=== PATIENT | female | born 1985 | race Caucasian/White ===

== ENCOUNTER 2025-09-27 00:17 | Day surgery (SDC) | payer OTHER, SELFPAY ==
--- OUTSIDE RECORDS SUMMARY | 2024-12-04 08:00 | XMS_ITS ---
[facility] Organization [facility] Address [address] [place] [address] Care Team Providers Care Vault Worker Name Role Phone MEGAN THOMAS Primary Care Provider [phone] VISHAL OLMOS Unavailable [phone] REASON FOR VISIT 8-10 WEEKS Encounters Encounter Location Date Provider Diagnosis [facility] [address] [place] [address] 12/04/2024 VISHAL OLMOS Plan Of Treatment No Information Progress Notes * Ayo JAYChristianoB: 983 (40 yo F)Acc No.[id number]:12/04/2024 Progress Notes Patient: Madison Leigh Provider: EBONY WOODARD :1985 A ge:39 Y S ex:Female Date:12/04/2024 Address:[facility] [address] [id number] Pcp:MEGAN THOMAS Subjective: * Chief Complaints: * 8 -10 WEEKS * Electronic signature of EBONY GOMEZ on 09/27/2025 at 12:20 AM CDT Sign off status: Pending * Provider: EBONY WOODARD Date: 0 12/04/2024 Generated for Kaylyn sosa/[place]/eTransmitting on: 1 12:20 AM CDT
--- NOTE | 2025-09-18 11:13 | SUR.PREOP ---
[facility] has started construction of its new state of the art ER which will open Spring 2026. With this, we anticipate parking may be a challenge for some our surgical patients and families. Parking spaces are limited but are available for all Surgical, obstetrics, and ER patients sharing this lot. If you arrive and find you are having a hard time finding a parking space, please note that we understand the challenges, please drive around the hospital and park near Hospital Entrance 1. When you enter this entrance, you can ask a volunteer to direct or take you back to the surgical waiting area to check in. We appreciate everyone?s understanding of these expected challenges while we build for your future. Report to the Outpatient Waiting Room, entrance under the green pavilion located off [address], at time _6am___ on date _09/27/25__. Planned Procedure Time: __730am .? Time changes happen often and if your time is changed the preop area will call you the afternoon before. - You and your visitor will be asked to self-screen and do not enter if you have any COVID symptoms. Please call surgeon if you need to reschedule. - A mask is optional within the hospital at this time. Patients may have clear liquids (water, carbonated beverages, clear teas, apple juice) until 3 hours prior to surgery with a maximum of 20 ounces. - No food from midnight until time of surgery and no smoking, or chewing tobacco (or any form of nicotine). No chewing gum, candy or mints. Take only the following medications with a SIP of water on the morning of surgery: none DO NOT STOP ANY OF YOUR OTHER PRESCRIPTION MEDICATIONS PRIOR TO SURGERY EXCEPT THE FOLLOWING Hold all vitamins and supplements for 3 days per anesthesiologist. Medications to discontinue per physician n/a Date to take last dose___09/23/25 Please no make-up, nail canadian, hairspray, perfume, deodorant, or body powder the day of surgery.? No jewelry (including any body piercings) or valuables the day of surgery, leave them at home.? Please take a shower or bath the night before, or the morning of, surgery with an antibacterial soap.? Wear comfortable, loose fitting clothing.? - Jewelry must be removed prior to entering the operating room.? Rings and piercings that are not removed may be cut off. - The hospital will not accept responsibility for valuables.? - Please leave all valuables, including medications, at home the day of surgery. If you are going home after surgery, a licensed airport shuttle driver must drive you home.? - NO public transportation without another adult if you receive anesthesia. - We recommend that an adult stay with you for 24 hours following discharge. - We also recommend that you do not drive, make important decision, drink alcoholic beverages, or take any drugs that were not prescribed by your health care provider for at least 24 hours after your discharge time. For Pediatric surgeries, we recommend two adults accompany the child home. Follow any additional instructions given to you from your surgeon. Telephone instructions given to ___Sam and asked if any additional questions and then verbalized understanding. Patient advised to call surgeon office or pre surgery nurse liaison [phone] if any additional questions.
[2025-09-18 11:28] VITALS: BMI 23.6
[2025-09-27] VITALS (9 sets, daily range): BP systolic 94–126; BP diastolic 57–79; PULSE 80–99; RESP 12–17; TEMP 36.2–36.6; O2SAT 95–100; BMI 23.6
--- OUTSIDE RECORDS SUMMARY | 2025-09-27 00:20 | XMS_ITS | Clinical Summary ---
Author Organization [facility] Ryan Ritchie Address [address] [place] [address] Care Team Providers Care Picture Copyist Name Role Phone Carly Galindo MD Primary Care Provider [phone] Allergies No known active allergies Medications loratadine-pseud oephedrine (CLARITIN-D 12-hour) 5-120 mg tablet extended release 12 hr 1 tablet every 12 (twelve) hours. Active TRINESSA, 28, 0.18/0.215/0.25 mg-35 mcg (28) per tablet TAKE 1 TABLET BY MOUTH DAILY 28 tablet 10/17/2018 Active Active Problems Problem Noted Date Diagnosed Date BMI 22.0-22.9, adult 04/19/2018 Assessment & Plan (04/19/2018 1:07 PM CDT): BMI Follow-up includes: nutrition counseling, exercise counseling and education provided. Allergic rhinitis Immunizations Immunization Administration Dates Next Due Influenza, Unspecified 04/19/2017(Deferred: Caroline ent Refused) Medical History Medical History Date Comments Allergic rhinitis Family History Medical History Relation Name Comments Colon cancer Other great grand father Breast cancer Neg Hx Relation Name Status Comments Father Alive Mother Alive Other great grand father Alive Social History Tobacco Use Types Packs/Day Years Used Date Smoking Tobacco: Never Smokeless Tobacco: Never Alcohol Use Standard Drinks/Week Comments Yes 0 (1 standard drink = 0.6 oz pur e alcohol) social Personal Safety Answer Date Recorded Getting School Help Needed Not on file 02/11 Comments Unknown Sex and Gender Information Value Date Recorded Sex Assigned at Not on file Legal Sex Female 11:46 AM CDT Gender Identity Not on file Sexual Orientation Not on file Obstetrics History Para Term AB IAB SAB Ectopic Multiple Livin g Live Births 0 0 0 0 0 0 0 0 0 0 0 Last Filed Vital Signs Vital Sign Reading Time Taken Comments Blood Pressure 100/64 04/19/2018 12:49 PM CDT Pulse 88 04/19/2018 12:49 PM CDT Temperature - - Respiratory Rate - - Oxygen Saturation 99% 04/19/2018 12:49 PM CDT Inhaled Oxygen Concentration - - Weight 54.6 kg (120 lb 6.4 oz) 04/19/2018 12:49 PM CDT Height 157.5 cm (5' 2) 04/19/2018 12:49 PM CDT Body Mass Index 22.02 04/19/2018 12:49 PM CDT Plan of Treatment Not on file Insurance [facility] CHOICE PLUS [facility] HMO/PPO Address: [place] [address] Care Teams Picture Copyist Relationship Specialty Start Date End Date Carly Galindo MD [address] [place] [address] [place] [address] PCP - General Family Medicine 04/17/18
--- OUTSIDE RECORDS SUMMARY | 2025-09-27 00:20 | XMS_ITS | Encounter Summary ---
Author Organization [facility] Address [address] [place] [address] Care Team Providers Care Orthopaedic Technologist Name Role Phone Unavailable Primary Care Provider Unavailabl e Encounter Details Date Type Department Care Team (Late st Contact Info) Description 09/25/2025 External Device Data ST[place] ABSTRACTION Provider, Abstract NO ADDRESS ON FILE Social History Tobacco Use Types Packs/Day Years Used Date Smoking Tobacco: Never Alcohol Use Standard Drinks/Week Comments Yes 1 (1 standard drink = 0.6 oz pure alcohol) I may have a drink every couple months Comments No Sex and Gender Information Value Date Recorded Sex Assigned at Not on file 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
--- OUTSIDE RECORDS SUMMARY | 2025-09-27 00:20 | XMS_ITS | Patient Health Record ---
Author Organization [facility] Address [address] [place] [address] Care Team Providers Care Bench Worker Apprentice Name Role Phone MEGAN THOMAS Primary Care Provider VISHAL OLMOS Unavailable [phone] Allergies No Known Allergies Results Component Value Reference Range Flag Notes IRON, TIBC AND FERRITIN PANE L (5616) Reviewed date:10/21/2024 12:00:20 PM Interpretation: Performing Lab:[facility] [address]-[id number] [place], [id number] Ayala Mireles MD Notes/Report: FASTING:YES FASTING: YES IRON, TOTAL 90 40-190 mcg/dL N IRON BINDING CAPACITY 388 250-450 mcg/dL (calc) N % SATURATION 23 16-45 % (calc) N FERRITIN 23 16-232 ng/mL N CBC (H/H, RBC, INDICES, WBC, PLT) (REFL) (30659) Reviewed date:10/21/2024 12:00:20 PM Interpretation: Performing Lab:[facility] [address]yah-Dpfvut[address] Marcel [place], [id number] Ayala Mireles MD Notes/Report: FASTING:YES FASTING: YES WHITE BLOOD CELL COUNT 8.9 3.8-10.8 Thousand/uL N RED BLOOD CELL COUNT 4.81 3.80-5.10 Million/uL N HEMOGLOBIN 13.6 11.7-15.5 g/dL N HEMATOCRIT 43.1 35.0-45.0 % N MCV 89.6 80.0-100.0 fL N MCH 28.3 27.0-33.0 pg N MCHC 31.6 32.0-36.0 g/dL L For adults, a slight decrease in the calculated MCHC value (in the range of 30 to 32 g/dL) is most likely not clinically significant; however, it should be interpreted with caution in correlation with other red cell parameters and the patient's clinical condition. RDW 12.5 11.0-15.0 % N PLATELET COUNT 369 140-400 Thousand/uL N MPV 10.9 7.5-12.5 fL N TSH+FREE T4 (53090) Reviewed date:10/21/2024 12:00:20 PM Interpretation: Performing Lab:[facility], VR1-[id number] Marcel [facility], [id number] Ayala Mireles MD Notes/Report: FASTING:YES FASTING: YES TSH 1.19 N Reference Range > or = 20 Years 0.40-4.50 Ranges First trimester 0.26-2.66 Second trimester 0.55-2.73 Third trimester 0.43-2.91 T4, FREE 1.1 0.8-1.8 ng/dL N LIPID PANEL W/ TRIGLYCERIDES /HDL-C (67756) Reviewed date:10/21/2024 12:00:20 PM Interpretation: Performing Lab:[facility], [facility] [place] [address], [address]burgNczizfpcoOQ[address] Patrick Kaur PhD,[facility] Notes/Report: FASTING:YES FASTING: YES CHOLESTEROL, TOTAL 234 <200 mg/dL H HDL CHOLESTEROL 74 >49 mg/dL TRIGLYCERIDES 81 <150 mg/dL LDL CHOLESTEROL 142 <100 mg/dL (calc) H Desirable range <100 mg/dL for primary prevention; <70 mg/dL for patients with CHD or diabetic patients with >= 2 CHD risk factors. LDL-C is now calculated using the Sofia calculation, which is a validated novel method providing better accuracy than the Friedewald equation in the estimation of LDL-C. Tommie SS et al. RENA. 2013;310(19): 1208-7170 (http://education.VR1.Energate/faq/FAQ 164) CHOL/HDL C 3.2 <5.0 calc NON HDL CHOLESTEROL 160 <130 mg/dL (calc) H For patients with diabetes plus 1 major ASCVD risk factor, treating to a non-HDL-C goal of <100 mg/dL (LDL-C of <70 mg/dL) is considered a therapeutic option. TG/HDL C 1.1 <2.0 calc COMPREHENSIVE METABOLIC PANE L (REFL) (85299) Reviewed date:10/21/2024 12:00:20 PM Interpretation: Performing Lab:[facility] [address] [address] [address] Padmini Agosto [id number] [facility] Notes/Report: FASTING:YES FASTING: YES GLUCOSE 80 65-99 mg/dL N Fasting reference interval UREA NITROGEN (BUN) 14 7-25 mg/dL N CREATININE 0.62 0.50-0.99 mg/dL N EGFR 115 > OR = 60 mL/min/1.73m2 N BUN/CREATININE RATIO SEE NOTE: 6-22 (calc) Not Reported: BUN and Creatinine are within reference range. SODIUM 137 135-146 mmol/L N POTASSIUM 4.4 3.5-5.3 mmol/L N CHLORIDE 102 98-110 mmol/L N CARBON DIOXIDE 28 20-32 mmol/L N CALCIUM 10.0 8.6-10.2 mg/dL N PROTEIN, TOTAL 8.1 6.1-8.1 g/dL N ALBUMIN 4.6 3.6-5.1 g/dL N GLOBULIN 3.5 1.9-3.7 g/dL (calc) N ALBUMIN/GLOBULIN RATIO 1.3 1.0-2.5 (calc) N BILIRUBIN, TOTAL 0.4 0.2-1.2 mg/dL N ALKALINE PHOSPHATASE 90 31-125 U/L N AST 23 10-30 U/L N ALT 18 6-29 U/L N HEMOGLOBIN A1c (496) Reviewed date:10/21/2024 12:00:20 PM Interpretation: Performing Lab:[facility] [address] [address] Administration Padmini Agosto [id number] [facility] Notes/Report: FASTING:YES FASTING: YES HEMOGLOBIN A1c 5.5 <5.7 % of total Hgb N For the purpose of screening for the presence of diabetes: <5.7% Consistent with the absence of diabetes 5.7-6.4% Consistent with increased risk for diabetes (prediabetes) > or =6.5% Consistent with diabetes This assay result is consistent with a decreased risk of diabetes. Currently, no consensus exists regarding use of hemoglobin A1c for diagnosis of diabetes in children. According to [place] Diabetes Association (ADA) guidelines, hemoglobin A1c <7.0% represents optimal control in non- diabetic patients. Different metrics may apply to specific patient populations. Standards of Medical Care in Diabetes(ADA). Reason For Referral Reason I am referring this pleasant 39 year old female for evaluation of well woman's examination and evaluation of reports of irregular menstrual cycles with associated fatigue. As always, if you have any questions or concerns please feel free to contact me. Thank you, Vishal Olmos MSN, MANAGER PHOTO, SCHOOL ATHLETIC DIRECTOR-BC Diagnosis 1 Irregular menstruati on (N92.6) Referral Organization [facility] [employer] Referring Provider First Name VISHAL Referring Provider Last Name AMARILIS Referring Provider Speciality Primary Ca re - Family Medicine Referred Provider Debbie Devi Referred Provider Specialty Registered Nursing Professor and senior principal software engineer Referral Priority Routine Medications Medication SIG (Take, Route, Fr equency, Duration) Notes Start Date End Date Status Loratadine 10 MG Tablet 1 tablet Orally Once a day 10/04/2024 Active Social History Section Notes: Patient is a life long non-s moker and does not confirm to current or previous use of ETOH or illicit substances. 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 Patient is a life long non-s moker and does not confirm to current or previous use of ETOH or illicit substances. 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 Problems Problem Type SNOMED Code ICD Code Onset Dates Problem Status W/U Status Risk Notes Problem Mixed hyperlipidemia (753242694) Moderate mixed hyperlipidemia not requiring statin therapy (E78.2) Active confirmed Problem Anemia (156504156) Anemia (D64.9) Active confirmed Problem Seasonal allergic rhinitis (016427383) Seasonal allergic rhinitis (J30.2) Active confirmed Problem Irregular menstruation (56571430) Irregular menstruation (N92.6) Active confirmed Vital Signs Heart Rate 78 /min 10/04/2024 Temperature 97.8 degrees Fahrenheit 10/04/2024 Respiratory Rate 14 /min 10/04/2024 Oximetry 100 % 10/04/2024 Blood pressure diastolic 74 mm Hg 10/04/2024 Height 61 in 10/04/2024 Blood pressure systolic 124 mm Hg 10/04/2024 Weight 129.20 lbs 10/04/2024 BMI 24.41 kg/m2 10/04/2024 Encounters Encounter Location Date Provider Diagnosis [facility] [address] [place] [address] 10/04/2024 VISHAL OLMOS Annual physical exam Z00.00 ; Anemia D64.9 ; Seasonal allergic rhinitis J30.2 ; Encounter for screening for diabetes mellitus Z13.1 ; Encounter for screening for other suspected endocrine disorder Z13.29 ; Encounter for screening for lipoid disorders Z13.220 and Irregular menstruation N92.6 [facility] [address] [place] [address] 12/07/2024 VISHAL OLMOS Anemia D64.9 ; Seaso nal allergic rhinitis J30.2 ; Irregular menstruation N92.6 and Moderate mixed hyperlipidemia not requiring statin therapy E78.2 [facility] [address] [place] [address] 10/04/2024 VISHAL OLMOS [facility] [address] [place] [address] 10/21/2024 VISHAL OLMOS Assessments Encounter Date Diagnosis (ICD Code) Assessment Notes Treatment Notes Treatment Clinical Notes Section Notes 12/07/2024 Anemia (ICD-10 - D64.9) - stable with continued dietary/lifestyle modification and OTC supplementation - denies any adverse effects related to the same - MCHC decreased on CBC however remaining counts unremarkable, continue with surveillance of labs and clinical symptoms 12/07/2024 Seasonal allergic rhinitis (ICD-10 - J30.2) -advised on continued use of daily antihistamine and Flonase -educated on benefits of nasal washing, avoidance of known triggers and changing air filters frequently -patient advised to notify office of new or worsening symptoms or to seek medical care for the same 10/04/2024 Anemia (ICD-10 - D64.9) - patient reports hx of the same with associated irregular menstrual cycles - requisition given for labs including iron panel 10/04/2024 Annual physical exam (ICD-10 - Z00.00) -annual physcial examination was completed and documented in this visit 10/04/2024 Seasonal allergic rhinitis (ICD-10 - J30.2) -stable with continued conservative measures -advised on continued use of daily antihistamine and Flonase -educated on benefits of nasal washing, avoidance of known triggers and changing air filters frequently -patient advised to notify office of new or worsening symptoms or to seek medical care for the same 12/07/2024 Irregular menstruation (ICD-10 - N92.6) - static, patient mentions recent f/u with SCHOOL ATHLETIC DIRECTOR with no overt or concerning findings, symptoms r/t balta-menopause per patient account, will obtain records for review 10/04/2024 Encounter for screening for diabetes mellitus (ICD-10 - Z13.1) 12/07/2024 Moderate mixed hyperlipidemia not requiring statin therapy (ICD-10 - E78.2) - labs reviewed and discussed in length with patient, patient prefers to move forward with dietary and lifestyle modification and surveillance of routine labs - discussed benefits of supplementation with B3, red rice yeast, bergamot and importance of nutrient dense diet high in omega 3 fatty acids - advised on avoidance of high sugar or overly processed food and saturated fats - encouraged on increased activity and hydration with H2O - patient educated on potential risks r/t HLD and importance of continued surveillance 10/04/2024 Encounter for screening for other suspected endocrine disorder (ICD-10 - Z13.29) 10/04/2024 Encounter for screening for lipoid disorders (ICD-10 - Z13.220) 10/04/2024 Irregular menstruation (ICD-10 - N92.6) - patient endorses irregular menstrual cycles in presence of fatigue. hx of anemia reported - requisition given for labs including iron panel this visit - advised on f/u with SCHOOL ATHLETIC DIRECTOR patient in agreement for the same advised on f/u with Debbie Devi for the same 12/07/2024 Other - 20 minutes s pent obtaining HPI/ROS telephone encounter including review of medical records, preparation of note, medication reconciliation and continued coordination of care 10/04/2024 Other -50 minutes were spent on this patient encounter. time spent included reviewing external records, preparation of note, review of medications including OTC's, care coordination with staff, counselling the patient and discussing followup instructions. -advised on f/u in 8-10 weeks Plan Of Treatment No Information Insurance Providers Payer Name Payer Address Payer Phone Subscriber Number Group Number Insured Name Patient Relationship to Insured Coverage Start Date Coverage End Date [facility] - [address] [place] [address] [id number] Madison Jay Self - patient is the insured 4 Medical (General) History Medical History History ICD Code Anemia D64.9 Seasonal allergic rhinitis J30.2
--- OUTSIDE RECORDS SUMMARY | 2025-09-27 00:20 | XMS_ITS | Clinical Summary ---
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 Name Role Phone Unavailable Primary Care Provider Unavailabl e Allergies No known active allergies Medications No known medications Active Problems No known active problems Encounters Date Type Department Care Team Description 09/25/2025 External Device Data [facility] ABSTRACTION Provider, Abstract 09/17/2025 External Device Data [facility] Provider, Abstract 07/02/2025 External Device Data [facility] Provider, Abstract from Last 3 Months Immunizations Immunization Administration Dates Next Due (TDVAX)(7 YRS UP) TETANUS AN D DIPHTHERIA TOXOIDS, ADSORBED (2 LF OF TETANUS TOXOID AND 2 LF OF DIPHTHERIA TOXOID), 0.5ML (PF), IM 07/10/1998 Family History Medical History Relation Name Comments Ovarian Cancer Other MGaunt Relation Name Status Comments Other MGaunt Social History Tobacco Use Types Packs/Day Years Used Date Smoking Tobacco: Never Tobacco Cessation:Counseling Given: No Alcohol Use Standard Drinks/Week Comments Yes 1 (1 standard drink = 0.6 oz pure alcohol) I may have a drink every couple months Comments No Sex and Gender Information Value Date Recorded Sex Assigned at Not on file Legal Sex Female 2:22 AM INSPECTION MACHINE TENDER Gender Identity Not on file Sexual Orientation Not on file Last Filed Vital Signs Vital Sign Reading Time Taken Comments Blood Pressure 110/76 11/07/2024 9:49 AM INSPECTION MACHINE TENDER Pulse - - Temperature - - Respiratory Rate - - Oxygen Saturation - - Inhaled Oxygen Concentration - - Weight 59 kg (130 lb) 11/07/2024 9:49 AM INSPECTION MACHINE TENDER Height 157.5 cm (5' 2) 11/07/2024 9:49 AM INSPECTION MACHINE TENDER Body Mass Index 23.78 11/07/2024 9:49 AM INSPECTION MACHINE TENDER Plan of Treatment Health Maintenance Due Date Last Done Comments DTAP/TDAP/TD VACCINES (2 - Tdap) 07/11/1998 07/10/19 98 HEPATITIS B VACCINES (1 of 3 - 19+ 3-dose series) 2002 HPV VACCINES (1 - 3-dose SCDM series) 2010 INFLUENZA VACCINE (#1) 2025 BREAST CANCER SCREENING 01/28/2026 01/28/2025, 12/26 PAP SMEAR 11/07/2027 11/07/2024 CERVICAL CANCER SCREENING 11/07/2029 HPV/Cotest (21-29) 11/07/2029 11/07/2024 HPV/Cotest (30-65) 11/07/2029 11/07/2024 Procedures Procedure Name Priority Date/Time Associated Diagnosis Comments MAMMO DIAG UNI LEFT 3D ENRIQUE W OR WO CAD Routine 01/28/2025 1:10 PM INSPECTION MACHINE TENDER Abnormality of left breast on screening mammography CERV/VAG CYTO AGE BASED SCREEN PAP Routine 11/07/2024 10:03 AM INSPECTION MACHINE TENDER Well woman exam with routine gynecological exam from Last 3 Months or Most Recently Relevant to Health Maintenance Results * MAMMO 3D ENRIQUE DIAGNOSTIC UNI LT W OR WO CAD (01/28/2025 1:10 PM INSPECTION MACHINE TENDER) Anatomical Region Laterality Modality Breast Left Mammography 01/28/2025 1:11 PM INSPECTION MACHINE TENDER Impressions 01/28/2025 1:17 PM INSPECTION MACHINE TENDER IMPRESSION: No mammographic evidence of malignancy. RECOMMENDATIONS: Routine screening mammogram in one year. [facility] 1:17 PM INSPECTION MACHINE TENDER EXAM: LEFT BREAST FULL-FIELD DIGITAL DIAGNOSTIC MAMMOGRAM WITH CAD WITH 3D TOMOSYNTHESIS DATE: 01/28/2025 1:10 PM HISTORY: Recent abnormal screening mammogram. TECHNIQUE: Spot tomographic and lateral imaging left breast COMPARISON: Baseline exam from 12/26/2024 BREAST COMPOSITION: There are scattered areas of fibroglandular density. FINDINGS: With additional imaging the area resolves. No underlying mass or architectural distortion. OVERALL FINAL ASSESSMENT: BI-RADS CATEGORY 1 : Negative Debbie Devi DOCTOR PODIATRIC MEDICINE MAMMO ORDERABLES Final Result * CERV/VAG CYTO AGE BASED SCREEN PAP (11/07/2024 10:03 AM INSPECTION MACHINE TENDER) COMMENT (PAP): [facility] [place] Comment: This order for age-based cervical cancer and STI screening follows ACOG guidelines(PB 168, 140, YMD845). See individual assays for performing site location. CLINICAL INFORMATION [facility] Comment:SCREENING LAST MENSTRUAL PERIOD [facility] Comment:09/22/2024 PREV PAP: [facility] Comment:NONE GIVEN PREV BX: [facility] [place] Comment:NONE GIVEN SOURCE [facility] [place] Comment:Endocervix ADEQUACY: [facility] Comment: Satisfactory for evaluation. Endocervical/transformation zone component present. PAP INTERP [facility] [place] Comment: Cytology Results: Negative for intraepithelial lesion or malignancy. COMMENT (PAP TEST) [facility] [place] Comment: This case could not be evaluated with computer assisted technology. The slide was manually screened according to routine procedures. INSIDE METER TESTER: Bettie est [facility]- Sandra Comment: BES, CT(ASCP) CT screening location: [place] [address] [place] [address] EXPLANATORY NOTE [facility] Comment: EXPLANATORY NOTE: The Pap is a screening test for cervical cancer. It is not a diagnostic test and is subject to false negative and false positive results. It is most reliable when a satisfactory sample, regularly obtained, is submitted with relevant clinical findings and history, and when the Pap result is evaluated along with historic and current clinical information. HPV E6/E7 Not Detected Not Detected [facility] [place] Comment: Methodology: Cattle Knocker-Mediated Amplification This assay detects E6/E7 viral messenger RNA (mRNA) from 14 high-risk HPV types (16,18,31,33,35,39,45,51,52,56,58,59,66,68). Cervical sources are required for HPV testing. If a vaginal source from a patient who has had a total hysterectomy with removal of cervix was submitted, please contact the testing laboratory for alternative testing options. For additional information, please refer to http://education.[employer]/faq/ONJ209f6 (This link if provided for information/ educational purposes only.) Test Performed at: [facility] [id number] [phone] Ayala THOMSON Gen[facility] SWAB OF ENDOCERVIX / Unknown 11/07/2024 10:03 AM INSPECTION MACHINE TENDER 11/08/2024 1:33 AM INSPECTION MACHINE TENDER Debbie Devi DOCTOR PODIATRIC MEDICINE PATHOLOGY/CYTOLOGY ORDERABLES Final Result [facility] [phone] [facility] [address] [phone] from Last 3 Months or Most Recently Relevant to Health Maintenance Insurance [facility] [id number]
[2025-09-27 06:51] LABS: BEDSIDEPREGUCG Negative (Negative)
[2025-09-27] MEDS: LACTATED RINGERS 1,000 ML 30 ML IV CONT ×2 (06:55→10:01)
[2025-09-27] MEDS: TRANEXAMIC ACID 1,000MG/ISO100 1,000 MG/100 ML BAG 200 MG IVPB (07:00)
--- NOTE | 2025-09-27 07:01 | WPDHPUPDATE1 ---
History and Physical Update Update Date/Time: 09/27/25 07:01 History and Physical has been reviewed, including an updated exam of the patient. There are NO changes in the patient's condition. Risks, benefits, and alternatives have been discussed and questions answered. Patient agrees to proceed with procedure.
--- NOTE | 2025-09-27 07:20 | P.OP_ITS ---
Procedure Note - Detailed Date of Procedure 09/27/25 Pre-op Diagnosis Macromastia Post-op Diagnosis Same Procedure Performed Bilateral reduction mammaplasty Surgeon Bruce Gonsalez MD Anesthesia General Findings Inverted T Superior medial pedicle Tissue removed - Right: 258 grams Left: 440 grams Lipoaspirate: 300 cc Description of Procedure She is here today for bilateral breast reduction. Previously and again today the risks, benefits, alternatives were discussed in extensive detail. I wanted her to be very realistic about the risks involved as well as expectations. We discussed aftercare and what to monitor for. She understands we can never gu arantee final breast size and there will always be asymmetry. I was very upfront and honest about the risks of sensation change and even nipple loss (). Made sure answered all of her questions to her satisfaction today and consent was obtained. She was marked in the preoperative holding area with their verification. The patient was taken to the operating room placed supine on the operating table. Anesthesia was provided by anesthesiology. She was prepped and draped in a standard sterile fashion. A surgical time-out was taken. Stab incisions were made and I tumesced with a tumescent solution. Suction lipectomy of lateral breast / chest wall was completed for contouring based on S.A.F.E. liposuction techniques utilizing a 4mm basket cannula. This was based on preoperative planning, intraoperative observation, and a rolling pinch test which was in full agreement. I marked out the nipple-areolar complex at 38 mm. I then de-epithelialized the pedicle. The pedicle was well left well more than 2 cm in thickness. I then removed the inferior portion of the breast as well as the central keel to get shape based on preoperative planning. At this point copiously irrigated with saline solution and verified a strict hemostasis. I reapproximated the pillars using a 2-0 PDS. I tailor tacked the breast into place with sathya. She was placed in a sitting position. I verified the nipple-areolar complex position based on preoperative markings, intraoperative measurements, and observation which were in full agreement. This nipple-areolar complex was marked at 38 mm in size. I then placed supine and de-epithelialized this. Nipple-areolar complex was inset with 3-0 Monocryl. I closed IMF deep with 2-0 strattafix. I closed the vertical incision with 3-0 Monocryl in the IMF with 3- 0 stratafix. Then everything was closed using a running subcuticular 4-0 Monocryl and tissue glue. Brijjits placed along vertical. A dressing was placed followed by surgical bra. Patient was awoke and taken to PACU without difficulty. All instrument sponge counts were correct at the end of the case. Estimated Blood Loss 40 Drains No Packing No Pathology Yes (Bilateral breast tissue) Complications No immediate complications Condition Stable Disposition PACU
--- NOTE | 2025-09-27 07:24 | WPDANESEPPF ---
Anes - Initial Pre Proc Eval Procedure: Operation Date: 09/27/25 07:30 Proposed Procedures p Bilateral Breast Reduction - Bruce Gonsalez MD Date/Time: 09/27/25 07:24 Surgeon: Bruce Gonsalez MD Pre Op Diagnosis: Macromastia Patient Data Age: 40 Gender: F Height: 1.57 m Weight: 58.75 kg Last Vital Signs Temp 97.1 F L 09/27/25 06:10 Pulse 80 09/27/25 06:10 Resp 14 09/27/25 06:10 BP 115/72 09/27/25 06:10 Pulse Ox 100 09/27/25 06:10 O2 Del Method Room Air 09/27/25 06:10 Allergies Allergy/AdvReac Type Severity Reaction Status Date / Time No Known Allergies Allergy Verified 09/27/25 06:40 Home Medications ?Medication ?Instructions ?Recorded ?Confirmed ?Type lactobacillus combination no.4 3 3,000 mmu cells PO DAILY 09/18/25 09/27/25 History billion cell capsule (Probiotic) loratadine 10 mg tablet (Claritin) 10 mg PO DAILY 09/18/25 09/18/25 History multivitamin (Daily Multi-Vitamin 1 tablet PO DAILY 09/18/25 09/27/25 History tablet) oxymetazoline 0.05 % nasal spray 2 spray intranasal DAILY 09/18/25 09/18/25 History (Mucinex Sinus-Max) Laboratory Tests 09/27/25 09/27/25 06:10 06:16 POC Urine HCG, Qual Negative (Negative) Cotinine Negative Patient hx anesthesia problems: none Family hx anesthesia problems: none Results Review: All pre-operative results and documents have been reviewed as part of the pre-operative evaluation. [facility] Social History Social History Smoking status: Never smoker Alcohol intake: current Alcohol use details: 1x/3 months Living arrangements: with roommate(s) Spiritual care concerns: No Anes - Eval Final PreProcedure Day of Procedure 09/27/25 07:24 Patient weight: normal Heart: regular rate and rhythm Lungs: clear to auscultation Airway: Mallampati scale class II Neurological: alert and oriented Last oral intake: >/= 8 hours ASA classification: I Emergent: no Anesthetic plan: proceed Anesthesia type and monitoring: general LMA and standard monitoring Results Review: All pre-operative results and documents have been reviewed as part of the pre-operative evaluation. Informed Consent: The patient's anesthetic plan and its attendant risks and benefits were discussed with the patient/family/POA. Questions were solicited and answers provided to the satisfaction of the patient/family/POA.
[2025-09-27] MEDS: ceFAZolin 2 GM in SODIUM CHLORIDE 0.9% IV 50 ML 100 ML IVPB (07:30)
[2025-09-27] MEDS: LACTATED RINGERS IRRIG 1,000 ML, LIDOCAINE 1% LOCAL INJ 50 ML, EPINEPHrine HCL INJ 1 MG... INFILTRATE (08:01)
--- NOTE | 2025-09-27 08:20 | S_PTH ---
PATIENT: Madison Jay LOC: [facility] U#:[id number] AGE/SX: 40/F ROOM: RE09/27/[address]: Bruce Gonsalez MD : 1985 BED: DIS: 09/27/2025 SPEC #: [id number] RECD: 09/27/25 10:31 STATUS: RILEY REQ #: [id number] LEOBARDO: 09/27/25 08:[address]: Bruce Gonsalez DEPT: [facility] RECD BY: Gavi Suarez Tissues: A - Breast Reduction B - Breast Reduction Procedures: Hematoxylin and Eosin Stain Gross and Microscopic Level 4
[2025-09-27] MEDS: fentaNYL CITRATE INJ (*CRX) 100 MCG/2 ML VIAL 25 MCG IV PUSH ×8 (10:17→12:10)
[2025-09-27] MEDS: oxyCODONE HCL (*CRX) 5 MG TAB IR PO (11:43)
[2025-09-27] MEDS: ONDANSETRON HCL ODT 4 MG TABLET SUBLINGUAL (12:59)
== END 2025-09-27 13:06 | disposition home or self-care (01) ==
PROVIDERS: Visit Provider Surgery Plastic and Reconstructive Surgery
PROC: 0HBV0ZZ Excision of Bilateral Breast, Open Approach (ICD-10-PCS; CPT 19318; principal; 2025-09-27 07:30)
DX: N62 Hypertrophy of breast (principal)
CPT/HCPCS: 19318; 80307; 88305; J0690; A9270; J0166; J1100; J2003; J2250; J2405; J2704; J3010; J3290; J7120